=== PATIENT | female | born 1985 | race African-American/Black ===

== ENCOUNTER 2018-03-24 01:46 | Emergency (ER) | payer OTHER ==
[~2018-03-24] VITALS: Ht 175.3 cm; Wt 114.1 kg
[2018-03-24 01:51] VITALS: TEMP 36.8; Ht 175.3 cm; Wt 114.1 kg
[2018-03-24] MEDS ORDERED: PRLSR20 PO (02:18)
[2018-03-24] MEDS ORDERED: LISI-729 PO (02:18)
[2018-03-24] MEDS ORDERED: METO25TA3 PO (02:19)
[2018-03-24] MEDS ORDERED: VNTHFA/IN INH (02:20)
[2018-03-24] MEDS ORDERED: ALBU0.633 NEB (02:21)
[2018-03-24] MEDS ORDERED: CYAN100T6 IM (02:23)
[2018-03-24] MEDS ORDERED: PREG1CAP36 PO (02:24)
[2018-03-24] MEDS ORDERED: INSU100I23 SQ (02:26)
[2018-03-24] MEDS ORDERED: insulin humalog SQ (02:28)
[2018-03-24] MEDS ORDERED: MULT-506 PO (02:29)
[2018-03-24] MEDS ORDERED: CHOL1000 PO (02:30)
[2018-03-24] MEDS ORDERED: SODIUM CHLORIDE 0.9% 1000ML 1,000 ML IV STA (02:36)
[2018-03-24 03:05] LABS: BASO % 0.3 %; BASO ABS # 0.01 K/uL (0-0.2); EOS % 1.7 %; EOS ABS # 0.06 K/uL (0-0.5); HEMATOCRIT 33.3 % (37-47); HEMOGLOBIN 10.5 g/dL (12.0-16.0); LYMPH ABS # 1.69 K/uL (1.2-3.4); MEAN CORPUSCULAR HEMOGLOBIN 26.2 pg (25-34); MEAN CORPUSCULAR HGB CONC 31.5 g/dl (32-36); MEAN PLATELET VOLUME 9.7 fL (7.4-10.4); MONO % 9.1 %; MONO ABS # 0.32 K/uL (0.11-0.59); NEUT % 40.9 %; NEUT ABS # 1.44 K/uL (1.4-6.5); PLATELET COUNT 191 K/uL (130-400); RED CELL DISTRIBUTION WIDTH CV 13.6 % (11.5-14.5); RED CELL DISTRIBUTION WIDTH SD 41.6 fL (36.4-46.3); WHITE BLOOD COUNT 3.52 K/uL (4.8-10.8)
[2018-03-24 03:33] LABS: BLOOD UREA NITROGEN 8 mg/dl (7-18); CALCIUM 8.5 mg/dl (8.5-10.1); CARBON DIOXIDE 29 mmol/L (21-32); CREATININE 0.73 mg/dl (0.60-1.20); GLUCOSE 238 mg/dl (70-99); POTASSIUM 3.6 mmol/L (3.5-5.1); SODIUM 138 mmol/L (136-145)
--- NOTE | 2018-03-24 04:38 | EMERGENCY ROOM VISIT NOTE ---
History Report prepared by Juan: Yessica Hughes Under the Supervision of: Dr. Luis Parker M.D. First contact with patient: 02:06 Chief Complaint: CARDIAC ASSESSMENT Stated Complaint: FLUTTERING HEARTBEAT History of Present Illness The patient is a 32 year old female who presents to the Emergency Room with complaints of an episode of her heart fluttering starting prior to arrival. The patient states that she has a history of atrial fibrillation and takes Metoprolol for it. She states that she goes into atrial fibrillation 2-3 times a week. She states that she normally doesn't come to the ED, but did tonight because she became dizzy, lightheaded, and chest pain. She states that her heart was also beating much faster with this episode. She reports that it awoke her from her sleep tonight. She notes that the last in she came to the ED was with similar symptoms a month ago. The patient complains of leg swelling. She notes that she is on potassium pills, but has not been taking them since she is visiting [place] and forgot them at home. The patient denies current chest pain, history of heart failure, history of thyroid problems, a history of blood clots, use of a blood thinner, abnormal eating/drinking, and burning with urination. Source of History: patient Onset: prior to arrival Position: chest Quality: other (heart fluttering) Timing: other (episode) Associated Symptoms: No chest pain, No urinary symptoms Note: The patient complains of dizziness, lightheadedness, and leg swelling. The patient denies abnormal eating/drinking. Review of Systems See HPI for pertinent positives & negatives. A total of 10 systems reviewed and were otherwise negative. Past Medical & Surgical Medical Problems: (1) A-fib (2) Asthma (3) Diabetes (4) HTN (hypertension) Surgical Problems: (1) Hx of gastric bypass Family History Patient reports no known family medical history. Social History Smoking Status: Former Smoker Marital Status: single Housing Status: lives with family Current/Historical Medications Scheduled Cholecalciferol (Vitamin D3), Unknown Dose PO DAILY Cyanocobalamin (Vitamin B12 100 Mcg), 100 MCG IM MONTHLY Insulin Glargine (Basaglar Kwikpen), 40 UNITS SQ DAILY Lisinopril (Zestril), 5 MG PO DAILY Metoprolol Succ (Toprol Xl) (Toprol-Xl), 25 MG PO DAILY Multivitamin (Multivitamin), 1 TAB PO DAILY Omeprazole (Prilosec), 10 MG PO DAILY Pregabalin (Lyrica), 25 MG PO BID [insulin humalog], 1 DOSE SQ DIRECTED Scheduled PRN Albuterol Hfa (Ventolin Hfa), 2-4 PUFFS INH DIRECTED PRN for SOB/Wheezing Albuterol Sulfate (Albuterol Sulfate), Unknown Dose NEB DIRECTED PRN for Shortness of Breath Allergies Coded Allergies: Latex1 -Allergic Contact Dermititis (Verified Allergy, Intermediate, itching, 03/24/18) Sitagliptin (Verified Allergy, Intermediate, itching, 03/24/18) Physical Exam Vital Signs Date Time Temp Pulse Resp B/P (MAP) Pulse Ox O2 Delivery O2 Flow Rate FiO2 03/24/18 04:45 81 18 138/80 100 03/24/18 02:20 70 03/24/18 02:07 99 Room Air 03/24/18 01:51 36.8 81 16 155/92 99 Room Air Physical Exam GENERAL: Patient is well appearing and in no acute distress. EYES: No scleral icterus, unremarkable pupils. ENT: Mucous membranes moist, no nasal congestion. NECK: No masses appreciated, no meningismus, trachea is midline. RESPIRATORY: No dyspnea. Clear to auscultation and equal bilaterally. No wheeze , no rhonchi. CARDIOVASCULAR: Regular rate and rhythm. No murmurs, rubs, gallops appreciated. GASTROINTESTINAL: Abdomen soft, nontender, no peritonitis. Bowel sounds positive. No masses appreciated. BACK: No midline tenderness, no CVA tenderness EXTREMITIES: Normal motion all extremities, no cyanosis, no edema. NEUROLOGIC: Alert and oriented, no acute motor or sensory deficits, no focal weakness, cranial nerves grossly intact. SKIN: No rash, no jaundice, no diaphoresis. Medical Decision & Procedures Laboratory Results 03/24/18 02:41 Red Blood Count 4.01, Mean Corpuscular Volume 83.0, Mean Corpuscular Hemoglobin 26.2, Mean Corpuscular Hemoglobin Concent 31.5, Mean Platelet Volume 9.7, Neutrophils (%) (Auto) 40.9, Lymphocytes (%) (Auto) 48.0, Monocytes (%) (Auto) 9.1, Eosinophils (%) (Auto) 1.7, Basophils (%) (Auto) 0.3, Neutrophils # (Auto) 1.44, Lymphocytes # (Auto) 1.69, Monocytes # (Auto) 0.32, Eosinophils # (Auto) 0.06, Basophils # (Auto) 0.01 03/24/18 02:41 Test 03/24/18 02:41 White Blood Count 3.52 K/uL (4.8-10.8) Red Blood Count 4.01 M/uL (4.2-5.4) Hemoglobin 10.5 g/dL (12.0-16.0) Hematocrit 33.3 % (37-47) Mean Corpuscular Volume 83.0 fL (80-100) Mean Corpuscular Hemoglobin 26.2 pg (25-34) Mean Corpuscular Hemoglobin Concent 31.5 g/dl (32-36) Platelet Count 191 K/uL (130-400) Mean Platelet Volume 9.7 fL (7.4-10.4) Neutrophils (%) (Auto) 40.9 % Lymphocytes (%) (Auto) 48.0 % Monocytes (%) (Auto) 9.1 % Eosinophils (%) (Auto) 1.7 % Basophils (%) (Auto) 0.3 % Neutrophils # (Auto) 1.44 K/uL (1.4-6.5) Lymphocytes # (Auto) 1.69 K/uL (1.2-3.4) Monocytes # (Auto) 0.32 K/uL (0.11-0.59) Eosinophils # (Auto) 0.06 K/uL (0-0.5) Basophils # (Auto) 0.01 K/uL (0-0.2) RDW Standard Deviation 41.6 fL (36.4-46.3) RDW Coefficient of Variation 13.6 % (11.5-14.5) Immature Granulocyte % (Auto) 0.0 % Immature Granulocyte # (Auto) 0.00 K/uL (0.00-0.02) D-Dimer 210 ug/L FEU (0-500) Anion Gap 4.0 mmol/L (3-11) Est Creatinine Clear Calc Drug Dose 149.1 ml/min Estimated GFR () 126.3 Estimated GFR (Non- 109.0 BUN/Creatinine Ratio 11.2 (10-20) Calcium Level 8.5 mg/dl (8.5-10.1) Troponin I < 0.015 ng/ml (0-0.045) Thyroid Stimulating Hormone (TSH) 3.820 uIu/ml (0.300-4.500) Laboratory results as reviewed by me. Medications Administered Medications (Trade) Dose Ordered Sig/Nieves Route Start Time Stop Time Status Last Admin Dose Admin Sodium Chloride 1,000 ml @ 999 mls/hr Q1H1M STAT IV 03/24/18 02:36 03/24/18 03:36 DC 03/24/18 02:57 999 MLS/HR ECG Per My Interpretation Indication: chest pain Rate (beats per minute): 76 Rhythm: normal sinus Findings: no acute ischemic change, no ectopy, other (QT-c 447) ED Course 0227: The patient was evaluated in room B2. A complete history and physical exam was performed. 0236: Ordered NSS 1000 ml @ 999 mls/hr IV. 0437: Reevaluated the patient and she is feeling better. She has had no further palpitations. Discussed results, including her mild anemia and normal potassium , and discharge instructions: She verbalized understanding and agreement. She will follow up with her PCP. The patient is ready for discharge. Medical Decision Differential: NSR, SVT, PACs, PVCs, Cardiac Dysrhythmia, Endocrine Dysfunction, Electrolyte/Metabolic Abnormality, Pulmonary Embolism, Infectious, GI, amongst other pathologies entertained. 32 yr old female awoke with palpitations, chest pain and lightheaded this morning no resolved. Occurs quite regularly and reports previous diagnosis of afib but not on blood thinners. Looks well and currently in NSR. Recent travel thus dimer which was negative and otherwise low risk PE. EKG/Trop unremarkable. Electrolytes look good. Anemia known to patient from previous visits. Stable throughout stay. Will follow up with PCP once home. Medication Reconcilliation Current Medication List: was personally reviewed by me Blood Pressure Screening Patient's blood pressure: Elevated blood pressure Blood pressure disposition: Elevated BP felt to be situational Impression Primary Impression: Palpitations Additional Impression: Anemia Scribe Attestation The scribe's documentation has been prepared under my direction and personally reviewed by me in its entirety. I confirm that the note above accurately reflects all work, treatment, procedures, and medical decision making performed by me. Departure Information Dispostion Home / Self-Care Referrals No Doctor, Assigned (PCP) Forms IMPORTANT VISIT INFORMATION Patient Instructions ED Palpitations, My [facility] [place] [facility] Problem Qualifiers
[2018-03-24 04:45] VITALS: BP 138/80; PULSE 81; O2SAT 100
--- NOTE | 2018-03-24 06:47 | DIAGNOSTIC IMAGING REPORT ---
CHEST ONE VIEW PORTABLE CLINICAL HISTORY: Chest Pain pain COMPARISON STUDY: No previous studies for comparison. FINDINGS: The bones soft tissues and hemidiaphragms are normal. The cardiomediastinal silhouette is normal. The lungs are clear. The pulmonary vasculature is normal. IMPRESSION: Negative chest. The above report was generated using voice recognition software. It may contain grammatical, syntax or spelling errors. Electronically signed by: Khanh Yu M.D. 03/24/2018 6:45 AM Dictated Date/Time: 03/24/2018 6:45 AM
== END 2018-03-24 04:46 | disposition home or self-care (01) ==
LOC: C.EDB 01:47
DX: R00.2 Palpitations (principal); D64.9 Anemia, unspecified; I48.91 Unspecified atrial fibrillation; J45.909 Unspecified asthma, uncomplicated; E11.9 Type 2 diabetes mellitus without complications; I10 Essential (primary) hypertension; Z79.4 Long term (current) use of insulin; Z79.899 Other long term (current) drug therapy; Z88.8 Allergy status to other drugs, medicaments and biological substances; Z91.040 Latex allergy status